=== PATIENT | female | born 1945 | race Caucasian/White ===

== ENCOUNTER 2017-03-19 12:42 | Emergency (ER) | payer MEDICARE, OTHER ==
[2017-03-19] MEDS ORDERED: Promethazine 25 MG/ML SDV IM ONE (13:17)
[2017-03-19] MEDS ORDERED: HYDROmorphone 0.5 MG/0.5 ML Syringe IM ONE (13:18)
[2017-03-19] MEDS ORDERED: Ketorolac 30 MG/ML SDV IM ONE (13:18)
--- NOTE | 2017-03-19 14:06 | EDM.PDOC ---
ED HPI GENERAL MEDICAL PROBLEM - General Chief Complaint: Back Pain or Injury Stated Complaint: BACK PAIN Time Seen by Provider: 03/19/17 12:56 Source of Information: Reports: Patient History Limitations: Reports: No Limitations - History of Present Illness INITIAL COMMENTS - FREE TEXT/NARRATIVE: The patient presents with right low back pain that radiates down her right leg. She says this all started 2 weeks ago. She denies any injury such as a fall or lifting anything heavy. She had trouble with her back before and needed injections. She went to [facility] and they did x-rays and said it was her back. They set her up with pain management for an injection. The pain is becoming worse. She has some numbness at times down her right leg. She has no bowel or bladder problems. Onset: Gradual Duration: Week(s): (2) Location: Reports: Back (Right lower back), Lower Extremity, Right (leg) Quality: Reports: Sharp Severity: Severe Improves with: Reports: None Worsens with: Reports: Movement Treatments KICK PRESS OPERATOR: Reports: Acetaminophen Right Lower Back Pain Score (Numeric/FACES): 10 - Related Data Allergies Allergy/AdvReac Type Severity Reaction Status Date / Time codeine Allergy Cannot Verified 03/19/17 12:53 Remember lisinopril Allergy Vomiting Verified 03/19/17 12:53 tramadol Allergy Vomiting Verified 03/19/17 12:53 Home Meds: Home Meds Acetaminophen [Tylenol Extra Strength] 1 - 2 tab PO Q6HR PRN 03/19/17 [History] Cyclobenzaprine [Flexeril] 10 mg PO TID PRN #20 tablet 03/19/17 [Rx] Hydrocodone/Acetaminophen [Hydrocodon-Acetaminophen 5-325] 1 - 2 each PO Q6HR PRN #20 tablet 03/19/17 [Rx] Ondansetron [Zofran ODT] 4 mg PO Q6H PRN #20 tab.dis 03/19/17 [Rx] Past Medical History HEENT History: Reports: Cataract, Impaired Vision Cardiovascular History: Reports: Hypertension, [place], Stents Genitourinary History: Reports: Renal Calculus Endocrine/Metabolic History: Reports: Diabetes, Type II, Obesity/BMI 30+ - Past Surgical History HEENT Surgical History: Reports: Tonsillectomy Musculoskeletal Surgical History: Reports: Hip Replacement Social & Family History - Family History Family Medical History: Noncontributory - Tobacco Use Smoking Status *Q: Never Smoker Second Hand Smoke Exposure: No - Recreational Drug Use Recreational Drug Use: No ED ROS GENERAL - Review of Systems Review Of Systems: See Below Constitutional: Reports: No Symptoms HEENT: Reports: No Symptoms Respiratory: Reports: No Symptoms Cardiovascular: Reports: No Symptoms Endocrine: Reports: No Symptoms GI/Abdominal: Reports: No Symptoms : Reports: No Symptoms Musculoskeletal: Reports: Back Pain (Right side) Skin: Reports: No Symptoms Neurological: Reports: No Symptoms ED EXAM,LOWER BACK PAIN/INJURY - Physical Exam Exam: See Below Exam Limited By: No Limitations General Appearance: Alert, No Apparent Distress Ears: Normal External Exam Nose: Normal Inspection Head: Atraumatic, Normocephalic Neck: Normal Inspection Respiratory/Chest: No Respiratory Distress, Lungs Clear, Normal Breath Sounds Cardiovascular: Regular Rate, Rhythm, No Edema, No Murmur GI/Abdominal: Soft, Non-Tender, No Organomegaly, No Mass Back Exam: Other (Pain upon palpation to the right lower back and pain upon palpation to the rigth buttock. Good sensation and pulses distally.) Course - Vital Signs Last Recorded V/S: Last Vital Signs Temp 96.0 F 03/19/17 12:47 Pulse 82 03/19/17 12:47 Resp 20 03/19/17 12:47 BP 159/75 H 03/19/17 12:47 Pulse Ox 93 L 03/19/17 12:47 - Orders/Labs/Meds Meds: Medications Discontinued Medications Generic Name Dose Route Start Last Admin Trade Name Kevynq PRN Reason Stop Dose Admin Hydromorphone HCl 0.5 mg 03/19/17 13:18 03/19/17 13:28 Dilaudid IM 03/19/17 13:19 0.5 mg ONETIME ONE Administration Ketorolac Tromethamine 30 mg 03/19/17 13:18 03/19/17 13:29 Toradol IM 03/19/17 13:19 30 mg ONETIME ONE Administration Promethazine HCl 25 mg 03/19/17 13:17 03/19/17 13:30 Phenergan IM 03/19/17 13:18 25 mg ONETIME ONE Administration - Re-Assessments/Exams Free Text/Narrative Re-Assessment/Exam: 03/19/17 14:05 I ordered a shot of toradol 30mg, dilaudid 0.5mg IM, and phenergan 25g IM. She feels better now. Departure - Departure Time of Disposition: 14:10 Disposition: Home, Self-Care 01 Condition: Good Clinical Impression: Low back pain Qualifiers: Chronicity: acute Back pain laterality: right Sciatica presence: with sciatica Sciatica laterality: sciatica of right side Qualified Code(s): M54.41 - Lumbago with sciatica, right side - Discharge Information Prescriptions: Hydrocodone/Acetaminophen [Hydrocodon-Acetaminophen 5-325] 1 - 2 each PO Q6HR PRN #20 tablet PRN Reason: Pain Cyclobenzaprine [Flexeril] 10 mg PO TID PRN #20 tablet PRN Reason: Pain Ondansetron [Zofran ODT] 4 mg PO Q6H PRN #20 tab.dis PRN Reason: Nausea/Vomiting Referrals: Stephie Wilhelm MD [Primary Care Provider] - Forms: ED Department Discharge Additional Instructions: Take the flexeril and hydrocodone as needed for pain. Take the zofran for any nausea and vomiting. Please return if you are worse and follow up with your doctor.
[2017-03-19 14:31] VITALS: BP 119/64
== END 2017-03-19 14:29 | disposition home or self-care (01) ==
LOC: JD.ED 12:42
DX: M54.41 Lumbago with sciatica, right side (principal); I10 Essential (primary) hypertension; I25.2 Old myocardial infarction; E11.9 Type 2 diabetes mellitus without complications; E66.9 Obesity, unspecified; Z98.890 Other specified postprocedural states; Z87.442 Personal history of urinary calculi; Z88.5 Allergy status to narcotic agent; Z88.8 Allergy status to other drugs, medicaments and biological substances; Z96.649 Presence of unspecified artificial hip joint; Z68.34 Body mass index [BMI] 34.0-34.9, adult; Z95.5 Presence of coronary angioplasty implant and graft
CPT/HCPCS: 96372; 99283; J1170; J1885; J2550; 99284

== ENCOUNTER 2019-06-27 14:57 | Emergency (ER) | payer MEDICARE, OTHER ==
[2019-06-27 15:21] VITALS: BP 159/77; PULSE 80
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
--- NOTE | 2019-06-27 16:01 | CT ---
CT cervical spine Technique: Multiple axial sections through the cervical spine were obtained. Study obtained from above C1 inferiorly to the bottom of T2. Reconstructed sagittal and coronal images were obtained. Comparison: No prior cervical spine imaging is available. Findings: Mild disc space narrowing is noted at C5-6. Anterior osteophytes are noted at C4-5 through T1-2. Diffuse degenerative apophyseal change is seen throughout the cervical spine. Ligamentum nuchal calcification is seen. No fracture is identified. Moderate to severe left-sided neural foraminal stenosis is noted at C3-4. Other neural foramina are fairly well patent. No bony central canal stenosis is seen. No abnormal subluxation is appreciated. Impression: 1. Degenerative change as described above. 2. Nothing acute is appreciated on CT study of the cervical spine. Diagnostic code #2 This report was dictated in [place] Standard Time
--- NOTE | 2019-06-27 16:04 | CT ---
Head CT Technique: Multiple axial sections through the brain were obtained. Intravenous contrast was not utilized. Comparison: No prior intracranial imaging is available. Findings: Ventricles along with basal cisterns and sulci over the convexities are mildly prominent. Mild diminished density is noted within the periventricular white matter compatible with small vessel ischemic demyelination change. No other abnormal parenchymal densities are seen. No evidence of intracranial hemorrhage. No midline shift or mass effect is seen. Bone window settings were reviewed. Visualized paranasal sinuses and mastoid sinuses are clear. No acute calvarial abnormality is appreciated. Mild atherosclerotic calcification is seen within the carotid siphon and within the vertebral vessels. Impression: 1. Mild senescent change. 2. Nothing acute is appreciated on noncontrast head CT exam. Diagnostic code #2 This report was dictated in [place] Standard Time
== END 2019-06-27 16:20 | disposition home or self-care (01) ==
LOC: JD.ED 14:57
DX: S13.9XXA Sprain of joints and ligaments of unspecified parts of neck, initial encounter (principal); I10 Essential (primary) hypertension; I25.2 Old myocardial infarction; E11.9 Type 2 diabetes mellitus without complications; E66.9 Obesity, unspecified; Z88.5 Allergy status to narcotic agent; Z88.8 Allergy status to other drugs, medicaments and biological substances; Z95.5 Presence of coronary angioplasty implant and graft; Z79.899 Other long term (current) drug therapy; Z79.4 Long term (current) use of insulin; V54.6XXA Passenger in pick-up truck or van injured in collision with heavy transport vehicle or bus in traffic accident, initial encounter; Y92.410 Unspecified street and highway as the place of occurrence of the external cause
CPT/HCPCS: 70450; 70450-26; 72125; 72125-26; 99284-25